=== PATIENT | male | born 1980 | race Caucasian/White ===

== ENCOUNTER 2017-10-04 20:32 | Inpatient (IN) | payer MEDICAID ==
[2017-10-04] MEDS: LORAZEPAM 2 MG INJ IV (23:33)
[2017-10-04] MEDS: ONDANSETRON 4 MG INJ IV (23:33)
[2017-10-04] MEDS: morphine 4 MG/ML VIAL IV (23:33)
[2017-10-04 23:47] LABS: ADD MAN DIFF? NO
[2017-10-04 23:50] LABS: WHITE BLOOD COUNT 7.4 10^3/ul (4.8-10.8)
[2017-10-04 23:50] LABS: BASOPHIL # 0.1 10^3/ul (0.0-0.1); BASOPHILS % 0.9 % (0.0-2.0); EOSINOPHILS # 0.1 10^3/ul (0.0-0.5); EOSINOPHILS % 0.8 % (0.0-7.0); HEMATOCRIT 45.7 % (42.0-52.0); HEMOGLOBIN 16.9 g/dl (14.0-18.0); LYMPHOCYTES # 1.4 10^3/ul (0.8-2.9); LYMPHOCYTES % 19.2 % (15.0-51.0); MEAN CORPUSCULAR HEMOGLOBIN 30.7 pg (29.0-33.0); MEAN CORPUSCULAR VOLUME 82.9 fl (82.0-101.0); MEAN PLATELET VOLUME 9.9 fl (7.4-10.4); MONOCYTE # 0.5 10^3/ul (0.3-0.9); MONOCYTES % 6.5 % (0.0-11.0); NEUTROPHIL # 5.3 10^3/ul (1.6-7.5); NEUTROPHILS % 72.2 % (39.0-77.0); NUCLEATED RED BLOOD CELLS% 0.3 /100WBC (0.0-0.0); PLATELET COUNT 377 10^3/UL (140-415); RED BLOOD COUNT 5.51 10^6/ul (4.70-6.10); RED CELL DISTRIBUTION WIDTH 12.8 % (11.5-14.5)
[2017-10-05 00:07] LABS: ALANINE AMINOTRANSFERASE 179 IU/L (13-69); ALBUMIN 4.3 g/dl (3.3-4.9); ALKALINE PHOSPHATASE 103 IU/L (42-121); ANION GAP 16 (8-16); ASPARTATE AMINO TRANSFERASE 219 IU/L (15-46); BILIRUBIN,INDIRECT 1.5 mg/dl (0-1.1); BILIRUBIN,TOTAL 1.5 mg/dl (0.2-1.3); BLOOD UREA NITROGEN 13 mg/dl (7-20); CALCIUM 8.9 mg/dl (8.4-10.2); CARBON DIOXIDE 27 mmol/L (21-31); CHLORIDE 96 mmol/L (97-110); CREATININE 0.64 mg/dl (0.61-1.24); GLUCOSE 108 mg/dl (70-220); POTASSIUM 3.7 mmol/L (3.5-5.1); SODIUM 135 mmol/L (135-144); TOTAL PROTEIN 8.2 g/dl (6.1-8.1)
[2017-10-05 00:08] LABS: INR 0.97
[2017-10-05 00:10] LABS: ADD UMIC YES; UR ASCORBIC ACID 20 mg/dL (NEGATIVE); UR BILIRUBIN (Dip) NEGATIVE (NEGATIVE); UR BLOOD (Dip) NEGATIVE (NEGATIVE); UR CLARITY CLEAR (CLEAR); UR COLOR YELLOW (YELLOW); UR GLUCOSE (Dip) NEGATIVE (NEGATIVE); UR KETONES (Dip) 1+ mg/dL (NEGATIVE); UR LEUKOCYTE ESTERASE (Dip) NEGATIVE Leu/ul (NEGATIVE); UR MUCUS FEW /HPF (NONE SEEN); UR NITRITE (Dip) NEGATIVE (NEGATIVE); UR RBC 1 /HPF (0-5); UR SPECIFIC GRAVITY (Dip) 1.024 (1.003-1.030); UR TOTAL PROTEIN (Dip) 1+ mg/dl (NEGATIVE); UR UROBILINOGEN (Dip) 1+ mg/dL (NEGATIVE); UR WBC 0 /HPF (0-5)
[2017-10-05 00:12] LABS: LACTIC ACID 3.5 mmol/L (0.5-2.0)
[2017-10-05] MEDS: CEFEPIME 2GM/50 ML (PMX) 50 ML IVPB (00:21)
[2017-10-05] MEDS: SODIUM CHLORIDE 0.9% 1L BAG IV* (00:21)
[2017-10-05 00:26] LABS: LIPASE 112 U/L (23-300)
[2017-10-05 00:30] LABS: TROPONIN-I < 0.010 ng/ml (0.000-0.120)
[2017-10-05] MEDS: VANCOMYCIN 1 GM (PMX) 250 ML IVPB (01:19)
[2017-10-05] MEDS ORDERED: ONDANSETRON 4 MG INJ IV (02:00)
[2017-10-05] MEDS ORDERED: BISACODYL (EC) 5 MG TAB PO (02:00)
[2017-10-05] MEDS ORDERED: MULTIVITAMINS 10 ML, THIAMINE 100 MG, FOLIC ACID 1 MG in SOD CHLORIDE 0.9% 1,000 ML IVPB (02:00)
[2017-10-05] MEDS ORDERED: DOCUSATE SODIUM 100 MG CAP PO (02:00)
[2017-10-05] MEDS ORDERED: NACL 0.9% 3 ML SYG IV (02:00)
[2017-10-05] MEDS ORDERED: ACETAMINOPHEN 325 MG TAB PO (02:00)
[2017-10-05 04:04] LABS: LACTIC ACID 2.2 mmol/L (0.5-2.0)
[2017-10-05 04:43] LABS: LACTIC ACID 2.3 mmol/L (0.5-2.0)
[2017-10-05] MEDS: CHLORDIAZEPOXIDE 25 MG CAP PO ×4 (04:57→20:23)
[2017-10-05 06:35] LABS: ADD MAN DIFF? NO
[2017-10-05 06:48] LABS: BASOPHIL # 0.1 10^3/ul (0.0-0.1); BASOPHILS % 0.8 % (0.0-2.0); EOSINOPHILS # 0.3 10^3/ul (0.0-0.5); EOSINOPHILS % 3.3 % (0.0-7.0); HEMATOCRIT 41.6 % (42.0-52.0); HEMOGLOBIN 14.2 g/dl (14.0-18.0); LYMPHOCYTES # 1.6 10^3/ul (0.8-2.9); MEAN CORPUSCULAR HEMOGLOBIN 29.3 pg (29.0-33.0); MEAN CORPUSCULAR HGB CONC 34.1 g/dl (32.0-37.0); MEAN PLATELET VOLUME 9.9 fl (7.4-10.4); MONOCYTE # 0.5 10^3/ul (0.3-0.9); MONOCYTES % 5.7 % (0.0-11.0); NEUTROPHIL # 5.5 10^3/ul (1.6-7.5); NEUTROPHILS % 69.7 % (39.0-77.0); PLATELET COUNT 194 10^3/UL (140-415); RED BLOOD COUNT 4.84 10^6/ul (4.70-6.10)
[2017-10-05 06:48] LABS: WHITE BLOOD COUNT 7.8 10^3/ul (4.8-10.8)
[2017-10-05 07:09] LABS: CHOL/HDL RATIO 2.7 RATIO; HDL CHOLESTEROL 34 mg/dl (28-63); TRIGLYCERIDES 326 mg/dl (0-149)
[2017-10-05 07:09] LABS: CHOLESTEROL 94 mg/dl (100-200)
[2017-10-05 07:18] LABS: ALANINE AMINOTRANSFERASE 139 IU/L (13-69); ALBUMIN 3.3 g/dl (3.3-4.9); ALKALINE PHOSPHATASE 74 IU/L (42-121); ANION GAP 12 (8-16); ASPARTATE AMINO TRANSFERASE 161 IU/L (15-46); BILIRUBIN,INDIRECT 1.7 mg/dl (0-1.1); BILIRUBIN,TOTAL 1.7 mg/dl (0.2-1.3); BLOOD UREA NITROGEN 8 mg/dl (7-20); CALCIUM 7.6 mg/dl (8.4-10.2); CARBON DIOXIDE 24 mmol/L (21-31); CHLORIDE 102 mmol/L (97-110); CREATININE 0.59 mg/dl (0.61-1.24); GLUCOSE 104 mg/dl (70-220); POTASSIUM 3.4 mmol/L (3.5-5.1); SODIUM 135 mmol/L (135-144); TOTAL PROTEIN 6.3 g/dl (6.1-8.1)
[2017-10-05 07:51] LABS: MAGNESIUM 1.3 mg/dl (1.7-2.5)
[2017-10-05 07:52] LABS: HEMOGLOBIN A1C 6.4 % (0-5.9)
[2017-10-05] MEDS: LORAZEPAM 2 MG INJ IV ×5 (08:22→23:31)
[2017-10-05] MEDS: MULTIVITAMINS 10 ML, THIAMINE 100 MG, FOLIC ACID 1 MG in SOD CHLORIDE 0.9% 1,000 ML IVPB (12:47)
[2017-10-05] MEDS: SOD CHLORIDE 0.9% 1,000 ML IV (13:00)
[2017-10-05] MEDS: POTASSIUM CHLORIDE (SR) 20 MEQ TAB PO (13:21)
[2017-10-05 13:49] LABS: HAAIG REFLEX REFLEX FILED
[2017-10-05 14:38] LABS: HEPATITIS B SURFACE ANTIGEN NEGATIVE (NEGATIVE)
[2017-10-05 14:56] LABS: HEPATITIS B CORE ANTIBODY NEGATIVE (NEGATIVE); HEPATITIS C VIRAL ANTIBODY NEGATIVE (NEGATIVE)
[2017-10-05] MEDS: MAGNESIUM SULFATE 4 GM/100 ML 100 ML IVPB (15:24)
[2017-10-05] MEDS: FAMOTIDINE 20 MG TAB PO (20:23)
[2017-10-06] MEDS: CHLORDIAZEPOXIDE 25 MG CAP PO ×5 (00:51→20:24)
[2017-10-06] MEDS: SOD CHLORIDE 0.9% 1,000 ML IV ×3 (00:53→17:00)
[2017-10-06] MEDS: LORAZEPAM 2 MG INJ IV (01:46)
[2017-10-06 07:53] LABS: ADD MAN DIFF? NO
[2017-10-06 07:59] LABS: BASOPHIL # 0.1 10^3/ul (0.0-0.1); BASOPHILS % 0.8 % (0.0-2.0); EOSINOPHILS # 0.4 10^3/ul (0.0-0.5); EOSINOPHILS % 6.1 % (0.0-7.0); HEMATOCRIT 45.2 % (42.0-52.0); HEMOGLOBIN 15.5 g/dl (14.0-18.0); LYMPHOCYTES % 30.6 % (15.0-51.0); MEAN CORPUSCULAR HEMOGLOBIN 29.7 pg (29.0-33.0); MEAN CORPUSCULAR HGB CONC 34.3 g/dl (32.0-37.0); MEAN CORPUSCULAR VOLUME 86.6 fl (82.0-101.0); MEAN PLATELET VOLUME 10.3 fl (7.4-10.4); MONOCYTE # 0.4 10^3/ul (0.3-0.9); MONOCYTES % 6.8 % (0.0-11.0); NEUTROPHIL # 3.6 10^3/ul (1.6-7.5); NEUTROPHILS % 55.4 % (39.0-77.0); PLATELET COUNT 186 10^3/UL (140-415); RED BLOOD COUNT 5.22 10^6/ul (4.70-6.10); RED CELL DISTRIBUTION WIDTH 13.3 % (11.5-14.5)
[2017-10-06 07:59] LABS: WHITE BLOOD COUNT 6.5 10^3/ul (4.8-10.8)
[2017-10-06] MEDS: MULTIVITAMINS 10 ML, THIAMINE 100 MG, FOLIC ACID 1 MG in SOD CHLORIDE 0.9% 1,000 ML IVPB (08:28)
[2017-10-06 08:37] LABS: ALANINE AMINOTRANSFERASE 124 IU/L (13-69); ALBUMIN 3.9 g/dl (3.3-4.9); ALBUMIN/GLOBULIN RATIO 1.05; ALKALINE PHOSPHATASE 82 IU/L (42-121); ANION GAP 14 (8-16); ASPARTATE AMINO TRANSFERASE 109 IU/L (15-46); BILIRUBIN,INDIRECT 1.3 mg/dl (0-1.1); BILIRUBIN,TOTAL 1.3 mg/dl (0.2-1.3); BLOOD UREA NITROGEN 4 mg/dl (7-20); CALCIUM 8.2 mg/dl (8.4-10.2); CARBON DIOXIDE 26 mmol/L (21-31); CHLORIDE 104 mmol/L (97-110); CREATININE 0.65 mg/dl (0.61-1.24); GLUCOSE 113 mg/dl (70-220); MAGNESIUM 2.2 mg/dl (1.7-2.5); POTASSIUM 3.9 mmol/L (3.5-5.1); SODIUM 140 mmol/L (135-144); TOTAL PROTEIN 7.6 g/dl (6.1-8.1)
[2017-10-06] MEDS: CITALOPRAM 20 MG TAB GTB (08:50)
[2017-10-06] MEDS ORDERED: PAROXETINE 20 MG TAB PO (09:00)
[2017-10-06] MEDS: FAMOTIDINE 20 MG TAB PO (20:24)
[2017-10-07] MEDS ORDERED: CHLORDIAZEPOXIDE 25 MG CAP PO
[2017-10-07] MEDS: LORAZEPAM 2 MG INJ IV (00:30)
[2017-10-07] MEDS: SOD CHLORIDE 0.9% 1,000 ML IV ×2 (03:25→15:00)
[2017-10-07 07:06] LABS: ADD MAN DIFF? NO
[2017-10-07 07:11] LABS: WHITE BLOOD COUNT 9.4 10^3/ul (4.8-10.8)
[2017-10-07 07:11] LABS: BASOPHIL # 0.1 10^3/ul (0.0-0.1); BASOPHILS % 0.5 % (0.0-2.0); EOSINOPHILS # 0.7 10^3/ul (0.0-0.5); EOSINOPHILS % 7.8 % (0.0-7.0); HEMATOCRIT 44.6 % (42.0-52.0); HEMOGLOBIN 15.2 g/dl (14.0-18.0); LYMPHOCYTES # 2.8 10^3/ul (0.8-2.9); LYMPHOCYTES % 30.3 % (15.0-51.0); MEAN CORPUSCULAR HEMOGLOBIN 29.6 pg (29.0-33.0); MEAN CORPUSCULAR HGB CONC 34.1 g/dl (32.0-37.0); MEAN CORPUSCULAR VOLUME 86.9 fl (82.0-101.0); MEAN PLATELET VOLUME 10.4 fl (7.4-10.4); MONOCYTE # 0.5 10^3/ul (0.3-0.9); NEUTROPHIL # 5.3 10^3/ul (1.6-7.5); PLATELET COUNT 178 10^3/UL (140-415); RED BLOOD COUNT 5.13 10^6/ul (4.70-6.10); RED CELL DISTRIBUTION WIDTH 13.4 % (11.5-14.5)
[2017-10-07 07:52] LABS: ANION GAP 11 (8-16); BLOOD UREA NITROGEN 8 mg/dl (7-20); CALCIUM 8.9 mg/dl (8.4-10.2); CARBON DIOXIDE 25 mmol/L (21-31); CHLORIDE 108 mmol/L (97-110); CREATININE 0.63 mg/dl (0.61-1.24); GLUCOSE 108 mg/dl (70-220); POTASSIUM 3.9 mmol/L (3.5-5.1); SODIUM 140 mmol/L (135-144)
[2017-10-07] MEDS: CHLORDIAZEPOXIDE 25 MG CAP PO (08:56)
[2017-10-07] MEDS: CITALOPRAM 20 MG TAB GTB (08:56)
[2017-10-07] MEDS: MULTIVITAMINS 10 ML, THIAMINE 100 MG, FOLIC ACID 1 MG in SOD CHLORIDE 0.9% 1,000 ML IVPB (08:57)
[2017-10-07] MEDS: FAMOTIDINE 20 MG TAB PO (20:28)
[2017-10-08] MEDS: LORAZEPAM 2 MG INJ IV (00:11)
[2017-10-08] MEDS: SOD CHLORIDE 0.9% 1,000 ML IV ×2 (00:11→11:00)
[2017-10-08 08:07] LABS: ALANINE AMINOTRANSFERASE 249 IU/L (13-69); ALBUMIN 3.7 g/dl (3.3-4.9); ALBUMIN/GLOBULIN RATIO 1.08; ALKALINE PHOSPHATASE 65 IU/L (42-121); ANION GAP 8 (8-16); ASPARTATE AMINO TRANSFERASE 206 IU/L (15-46); BILIRUBIN,INDIRECT 0.7 mg/dl (0-1.1); BILIRUBIN,TOTAL 0.7 mg/dl (0.2-1.3); BLOOD UREA NITROGEN 8 mg/dl (7-20); CALCIUM 8.9 mg/dl (8.4-10.2); CARBON DIOXIDE 28 mmol/L (21-31); CHLORIDE 107 mmol/L (97-110); CREATININE 0.69 mg/dl (0.61-1.24); GLUCOSE 99 mg/dl (70-220); SODIUM 139 mmol/L (135-144); TOTAL PROTEIN 7.1 g/dl (6.1-8.1)
[2017-10-08] MEDS: CITALOPRAM 20 MG TAB GTB (08:56)
[2017-10-08] MEDS: MULTIVITAMINS 10 ML, THIAMINE 100 MG, FOLIC ACID 1 MG in SOD CHLORIDE 0.9% 1,000 ML IVPB (08:56)
== END 2017-10-08 13:38 | disposition home or self-care (01) | DRG 897 ==
LOC: E/R 20:32 → MS4 10-05 01:27
DX: F10.221 Alcohol dependence with intoxication delirium (principal); E87.2 Acidosis; F33.2 Major depressive disorder, recurrent severe without psychotic features; F10.231 Alcohol dependence with withdrawal delirium; I10 Essential (primary) hypertension; K70.0 Alcoholic fatty liver; Y90.0 Blood alcohol level of less than 20 mg/100 ml
CPT/HCPCS: 36415; 71045; 74176; 80048; 80053; 80061; 80307; 81001; 83036; 83605; 83690; 83735; 84443; 84484; 85025; 85610; 85730; 86704; 86709; 86803; 87040; 87086; 87340; 93005; 93306; 96374; 96375; 99291-25

== ENCOUNTER 2018-12-12 06:47 | Emergency (ER) | payer MEDICAID ==
[2018-12-12] MEDS: LORAZEPAM 1 MG TAB PO (08:14)
[2018-12-12] MEDS: ONDANSETRON (ODT) 4 MG TAB ODT (08:14)
== END 2018-12-12 08:43 | disposition home or self-care (01) ==
LOC: FTE 06:47
DX: F10.230 Alcohol dependence with withdrawal, uncomplicated (principal); I10 Essential (primary) hypertension; F32.9 Major depressive disorder, single episode, unspecified; S00.81XA Abrasion of other part of head, initial encounter; F41.1 Generalized anxiety disorder; F17.210 Nicotine dependence, cigarettes, uncomplicated; X58.XXXA Exposure to other specified factors, initial encounter; Z91.14 Patient's other noncompliance with medication regimen
CPT/HCPCS: 93005; 99283-25